=== PATIENT | male | born 1990 | race Caucasian/White ===

== ENCOUNTER 2021-06-24 09:07 | Emergency (ER) | payer OTHER ==
[~2021-06-24] VITALS: Ht 185.4 cm; Wt 81.7 kg
[2021-06-24] MEDS ORDERED: AMOX500 PO (09:21)
[2021-06-24] MEDS ORDERED: OXYC5 PO (10:23)
== END 2021-06-24 10:38 | disposition home or self-care (01) ==
LOC: ER 09:07
DX: K08.89 Other specified disorders of teeth and supporting structures (principal); K02.9 Dental caries, unspecified; F17.210 Nicotine dependence, cigarettes, uncomplicated; Z79.899 Other long term (current) drug therapy
CPT/HCPCS: A9270; J1885

== ENCOUNTER 2024-06-26 08:44 | Emergency (ER) | payer OTHER ==
[~2024-06-26] VITALS: Ht 182.9 cm; Wt 79.4 kg
[~2024-06-26 08:44] MED LIST: AMOX500 PO; OXYC5 PO
[2024-06-26 09:21] VITALS: BP 115/72
[2024-06-26] MEDS ORDERED: ALBU90OI (09:22)
[2024-06-26] MEDS ORDERED: Amoxicillin500 MG PO (09:37)
[2024-06-26] MEDS ORDERED: HYDROcodone 5-APAP 325 TAB PO ONE (09:40)
== END 2024-06-26 10:00 | disposition home or self-care (01) ==
LOC: ER 08:44
DX: K04.7 Periapical abscess without sinus (principal); F17.210 Nicotine dependence, cigarettes, uncomplicated; Z59.89 Other problems related to housing and economic circumstances
CPT/HCPCS: 99282; A9270